=== PATIENT | female | born 1940 | race Caucasian/White ===

== ENCOUNTER → 2017-10-13 | Outpatient (CLI) | payer MEDICARE, SELFPAY | PROVIDERS: PCP Internal Medicine | DX: I51.9 Heart disease, unspecified (principal); L95.9 Vasculitis limited to the skin, unspecified | CPT/HCPCS: 36415; 82164; 82785; 83516; 83520; 84311; 84443; 86001; 86003; 86021; 86038; 86039; 86147; 86226; 86235; 86430; 86606 ==